=== PATIENT | male | born 1940 | race African-American/Black ===

== ENCOUNTER 2019-12-19 17:05 | Emergency (ER) | payer OTHER, MEDICAID ==
[~2019-12-19] VITALS: Ht 180.3 cm; Wt 114.0 kg
[~2019-12-19 17:05] MED LIST: htn meds
[2019-12-19] MEDS ORDERED: SODIUM CHLORIDE 0.9% 1,000 ML IV ONE (17:20)
[2019-12-19 17:58] LABS: BASOPHILS % 0.5 % (0.0-2.0); EOSINOPHILS % 6.5 % (0.0-5.0); HEMATOCRIT. 38.6 % (42.0-52.0); HEMOGLOBIN. 12.9 g/dL (14.0-18.0); LYMPHOCYTES % 24.2 % (20.0-50.0); MEAN CORPUSCULAR HEMOGLOBIN 27.1 pg (28.0-32.0); MEAN CORPUSCULAR VOLUME 81.5 fL (80.0-94.0); MEAN PLATELET VOLUME 8.3 fl (7.4-10.4); MONOCYTES % 10.3 % (2.0-8.0); NEUTROPHILS % 58.5 % (40.0-76.0); PLATELET 152 x1000/uL (130-400); RED BLOOD CELL COUNT 4.74 mill/uL (4.7-6.1); RED CELL DISTRIBUTION WIDTH 15.4 % (11.6-14.6)
[2019-12-19 17:59] LABS: CHLORIDE 108 mEq/L (98-107)
[2019-12-19 18:02] LABS: PROTHROMBIN TIME 10.6 sec (9.6-11.0)
[2019-12-19 18:03] LABS: ETHANOL BLOOD < 10 mg/dL
[2019-12-19 19:10] LABS: CLARITY URINE CLEAR (CLEAR); COLOR URINE YELLOW (YELLOW); KETONES URINE NEGATIVE (NEGATIVE); LEUKOCYTE ESTERASE URINE NEGATIVE (NEGATIVE); NITRITE URINE NEGATIVE (NEGATIVE); OCCULT BLOOD URINE NEGATIVE (NEGATIVE); PROTEIN URINE TRACE (NEGATIVE); SPECIFIC GRAVITY URINE 1.016 (1.005-1.030); UROBILINOGEN URINE 0.2 E.U./dL (0.2-1.0)
[2019-12-19 19:25] LABS: *BARBITURATES SCREEN URINE NEGATIVE (NEGATIVE); *BENZODIAZEPINES SCREEN URINE PRESUMTIVE POSITIVE (NEGATIVE)
[2019-12-19 19:27] LABS: *AMPHETAMINES SCREEN URINE NEGATIVE (NEGATIVE); *COCAINE SCREEN URINE NEGATIVE (NEGATIVE); CANNABINOID URINE SCREEN NEGATIVE (NEGATIVE); METHADONE URINE SCREEN NEGATIVE (NEGATIVE); OPIATES URINE SCREEN NEGATIVE (NEGATIVE); PHENCYCLIDINE URINE SCREEN NEGATIVE (NEGATIVE)
[2019-12-19 20:15] VITALS: BP 152/74
== END 2019-12-19 20:53 | disposition home or self-care (01) ==
LOC: ER 17:05
DX: R55 Syncope and collapse (principal); I10 Essential (primary) hypertension; R73.03 Prediabetes; Z88.0 Allergy status to penicillin
CPT/HCPCS: 36415; 71045; 80053; 80305; 80320; 81003; 84484; 85025; 85610; 93005; 96360; 96361; 99285; J7030; G0480

== ENCOUNTER 2024-08-18 09:56 | Emergency (ER) | payer OTHER, MEDICAID ==
[~2024-08-18] VITALS: Ht 182.9 cm; Wt 82.0 kg
[2024-08-18 09:58] VITALS: O2SAT 95
[2024-08-18 11:17] LABS: BASOPHILS % 0.4 % (0.0-2.0); CHLORIDE 102 mEq/L (98-107); EOSINOPHILS % 2.6 % (0.0-5.0); HEMOGLOBIN. 11.4 g/dL (14.0-18.0); LYMPHOCYTES % 15.1 % (20.0-50.0); MEAN CORPUSCULAR HEMOGLOBIN 26.2 pg (28.0-32.0); MEAN CORPUSCULAR HGB CONC 32.4 g/dL (31.0-37.0); MEAN CORPUSCULAR VOLUME 80.9 fL (80.0-94.0); MEAN PLATELET VOLUME 8.2 fl (7.4-10.4); MONOCYTES % 7.6 % (2.0-8.0); NEUTROPHILS % 74.3 % (40.0-76.0); PLATELET 204 x1000/uL (130-400); RED BLOOD CELL COUNT 4.33 mill/uL (4.7-6.1); RED CELL DISTRIBUTION WIDTH 15.2 % (11.6-14.6); SODIUM 142 mEq/L (136-145); WHITE BLOOD COUNT 5.3 x1000/uL (4.5-11.0)
[2024-08-18 11:18] LABS: CALCIUM 9.3 mg/dL (8.7-10.4); CARBON DIOXIDE 32 mEq/L (21-32)
[2024-08-18 11:23] LABS: CREATININE 1.1 mg/dL (0.6-1.3); GLUCOSE 130 mg/dL (70-105); UREA NITROGEN BLOOD 13 mg/dL (9-23)
[2024-08-18 11:24] LABS: TROPONIN I HIGH SENSITIVITY 27 ng/L (3.0-53)
[2024-08-18 13:36] VITALS: BP 175/85; PULSE 57; RESP 11; TEMP 36.4; O2SAT 99
[2024-08-18] MEDS ORDERED: CLONIDINE 0.1MG TABLET PO ONE (13:45)
[2024-08-18] MEDS: HYDRALAZINE 20MG/ML VIAL IV ONE (13:45)
[2024-08-18 14:16] LABS: TROPONIN I HIGH SENSITIVITY 27 ng/L (3.0-53)
== END 2024-08-18 14:09 | disposition short-term general hospital (02) ==
LOC: ER 09:56 → CANBEDREQ 12:44 → ER 14:09
DX: R55 Syncope and collapse (principal); G93.49 Other encephalopathy; F03.90 Unspecified dementia, unspecified severity, without behavioral disturbance, psychotic disturbance, mood disturbance, and anxiety; I10 Essential (primary) hypertension; E11.9 Type 2 diabetes mellitus without complications; Z87.891 Personal history of nicotine dependence; Z85.51 Personal history of malignant neoplasm of bladder; Z88.0 Allergy status to penicillin
CPT/HCPCS: 99285; 96374; 70450; 71045; 80048; 83880; 83605; 85025; 84484; 36415; 93005; J0360; A4606

== ENCOUNTER 2025-03-23 16:49 | Emergency (ER) | payer OTHER, MEDICAID ==
[~2025-03-23] VITALS: Ht 188 cm; Wt 100.0 kg
[~2025-03-23 16:49] MED LIST changes: +AMLO5TAB88 PO; +ATOR40TA70 PO; +DONE5TAB33 PO; +LOSA25TA26 PO; +MEMA5TAB16 PO; +METF-416 PO; +TAMS-54 PO; +TRAZ-252 PO; +TRIA0.2579 PO; -htn meds
[2025-03-23 16:52] VITALS: O2SAT 98
[2025-03-23 18:26] LABS: BASOPHILS % 0.3 % (0.0-2.0); EOSINOPHILS % 1.5 % (0.0-5.0); HEMATOCRIT. 33.8 % (42.0-52.0); HEMOGLOBIN. 11.1 g/dL (14.0-18.0); LYMPHOCYTES % 16.8 % (20.0-50.0); MEAN PLATELET VOLUME 8.0 fl (7.4-10.4); MONOCYTES % 8.6 % (2.0-8.0); NEUTROPHILS % 72.8 % (40.0-76.0); PLATELET 207 x1000/uL (130-400); RED BLOOD CELL COUNT 4.12 mill/uL (4.7-6.1); RED CELL DISTRIBUTION WIDTH 16.4 % (11.6-14.6)
[2025-03-23 18:36] LABS: INR 1.0
[2025-03-23 18:46] LABS: CREATININE 1.3 mg/dL (0.6-1.3)
[2025-03-23 18:47] LABS: UREA NITROGEN BLOOD 13 mg/dL (9-23)
[2025-03-23 18:48] LABS: ASPARTATE AMINOTRANSFERASE 16 IU/L (<34); BILIRUBIN DIRECT 0.3 mg/dL (<=3.0); TROPONIN I HIGH SENSITIVITY 36 ng/L (3.0-53)
[2025-03-23 18:49] LABS: BILIRUBIN TOTAL 0.8 mg/dL (0.1-1.0); PROTEIN TOTAL 6.5 g/dL (6.0-8.3)
[2025-03-23 19:07] VITALS: TEMP 36.9
[2025-03-23] MEDS: FUROSEMIDE 40MG/4ML VIAL IVP ONE (19:07)
[2025-03-23] MEDS: MAGNESIUM/ALUMINUM HYDROXIDE/SIMETHICONE 30ML UDC PO ONE (20:40)
[2025-03-23] MEDS: FAMOTIDINE 20MG TABLET PO ONE (20:40)
[2025-03-23] MEDS: ONDANSETRON HCL 4MG/2ML INJ IV ONE (20:41)
[2025-03-23] MEDS: ONDANSETRON 4MG ODT PO ONE (20:45)
[2025-03-23] MEDS: HYDRALAZINE 20MG/ML VIAL IV ONE (20:57)
[2025-03-23] MEDS: METOCLOPRAMIDE HCL 10MG/2ML VIAL IV ONE (20:57)
[2025-03-23 23:22] LABS: CLARITY URINE CLEAR (CLEAR); COLOR URINE YELLOW (YELLOW); GLUCOSE URINE NEGATIVE (NEGATIVE); KETONES URINE NEGATIVE (NEGATIVE); LEUKOCYTE ESTERASE URINE 3+ (NEGATIVE); NITRITE URINE NEGATIVE (NEGATIVE); OCCULT BLOOD URINE NEGATIVE (NEGATIVE); PH URINE 7.0 (4.5-8.0); PROTEIN URINE TRACE (NEGATIVE); SPECIFIC GRAVITY URINE 1.007 (1.005-1.030); UROBILINOGEN URINE 0.2 E.U./dL (0.2-1.0)
[2025-03-23 23:31] LABS: *AMPHETAMINES SCREEN URINE NEGATIVE (NEGATIVE); *BARBITURATES SCREEN URINE NEGATIVE (NEGATIVE); *BENZODIAZEPINES SCREEN URINE NEGATIVE (NEGATIVE); *COCAINE SCREEN URINE NEGATIVE (NEGATIVE); CANNABINOID URINE SCREEN NEGATIVE (NEGATIVE); ECSTASY MDMA SCREEN URINE NEGATIVE (NEGATIVE); METHADONE URINE SCREEN NEGATIVE (NEGATIVE); OPIATES URINE SCREEN NEGATIVE (NEGATIVE); PHENCYCLIDINE URINE SCREEN NEGATIVE (NEGATIVE)
[2025-03-23 23:57] LABS: BACTERIA URINE TRACE; SQUAMOUS EPITHELIAL CELL URINE FEW /lpf (RARE/1+); WBC URINE 25-50 /hpf (0-2)
[2025-03-23 23:58] LABS: RBC URINE 0-2 /hpf (0-2)
[2025-03-24 00:30] VITALS: BP 162/94; PULSE 86; RESP 16; O2SAT 96
[2025-03-24 01:54] LABS: INFLUENZA TYPE A Presumptive Negative (Pres. Neg.); INFLUENZA TYPE B Presumptive Negative (Pres. Neg.)
[2025-03-24 01:56] LABS: RESPIRATORY SYNCYTIAL VIRUS Not Detected (Not Detectd)
== END 2025-03-24 00:51 | disposition short-term general hospital (02) ==
LOC: ER 16:49 → CMPBEDREQ 03-24 09:02
DX: K29.70 Gastritis, unspecified, without bleeding (principal); K20.90 Esophagitis, unspecified without bleeding; I11.0 Hypertensive heart disease with heart failure; I50.9 Heart failure, unspecified; R11.2 Nausea with vomiting, unspecified; E11.9 Type 2 diabetes mellitus without complications; Z88.0 Allergy status to penicillin; Z79.899 Other long term (current) drug therapy; Z20.822 Contact with and (suspected) exposure to COVID-19
CPT/HCPCS: 80076; 80305; 80048; 81003; 80320; 83880; 83690; 83735; 85025; 85610; 85730; 86850; 86900; 86901; 87420; 87086; 87186; 84484; 87804 ×2; 87077; 36415; 71045; 74176; 93005; 96374; 96375; 99291; 87426; J1938; J0360; J2765; J2405; G0480